=== PATIENT | female | born 1985 | race Native Hawaiian/Other Pacific Islander ===

== ENCOUNTER 2020-12-11 11:30 | Emergency (ER) | payer OTHER ==
[2020-12-11 12:37] LABS: BILIRUBIN,URINE NEGATIVE (NEGATIVE); GLUCOSE, URINE (UA) NEGATIVE (NEGATIVE); KETONES,URINE (UA) TRACE mg/dL (NEGATIVE); LEUKOCYTE ESTERASE, URINE NEGATIVE (NEGATIVE); NITRITE,URINE NEGATIVE (NEGATIVE); OCCULT BLOOD,URINE LARGE (NEGATIVE); PROTEIN,URINE 100 mg/dL (NEGATIVE); UROBILINOGEN,URINE 0.2 (NORMAL) E.U./dL (NORMAL)
[2020-12-11 12:39] LABS: BASOPHILS % (AUTO) 0.1 %; CLARITY,URINE BLOODY (CLEAR); HCT - HEMATOCRIT 43.7 % (37.0-47.0); HGB - HEMOGLOBIN 15.1 g/dL (12.0-16.0); LYMPHOCYTES % (AUTO) 4.2 %; MEAN CORPUSCULAR HEMOGLOBIN 30.6 pg (27.0-31.0); MEAN CORPUSCULAR HGB CONC 34.6 g/dL (32.0-36.0); MEAN CORPUSCULAR VOLUME 88.6 fL (81.0-99.0); MEAN PLATELET VOLUME 10.6 fL (7.9-10.8); MONOCYTES % (AUTO) 2.8 %; NEUTROPHILS % (AUTO) 92.4 %; PLT - PLATELET COUNT 277 10^3/uL (130-450); RED BLOOD COUNT 4.93 10^6/uL (4.20-5.40); RED CELL DISTRIBUTION WIDTH 12.6 % (12.0-15.0); WHITE BLOOD COUNT 22.3 x10^3/uL (4.8-10.8)
[2020-12-11 12:40] LABS: HCG UR QUAL NEGATIVE
[2020-12-11 12:45] LABS: ABNORMAL LYMPHS % (MANUAL) 0 %
[2020-12-11] MEDS ORDERED: ONDANSETRON 4 MG/2 ML VIAL IVP STA (12:48)
[2020-12-11] MEDS ORDERED: MORPHINE 2 MG/ML CARPUJECT IVP STA (12:48)
[2020-12-11] MEDS ORDERED: SODIUM CHLORIDE 0.9% 1,000 ML IV STA (12:48)
[2020-12-11 12:52] LABS: ALBUMIN 4.8 g/dL (3.2-5.5); ALBUMIN/GLOBULIN RATIO 1.5 (1.0-2.2); BILIRUBIN,TOTAL 0.9 mg/dL (0.2-1.0); CALCIUM 9.4 mg/dL (8.5-10.3); CREATININE 0.7 mg/dL (0.4-1.0); POTASSIUM 3.5 mmol/L (3.5-5.0); TOTAL PROTEIN 8.1 g/dL (6.7-8.2)
--- NOTE | 2020-12-11 12:52 | ED Physician Documentation ---
History of Present Illness - Stated complaint Stated Complaint: STOMACH/BACK PX VOMITING - Chief complaint Chief Complaint: Abd Pain - Additonal information Additional information: 35-year-old female presents emergency department for evaluation of acute right upper quadrant and epigastric abdominal pain that began yesterday evening after eating fast food. She says that she has had similar in the past but it generally self resolves. This is gone unabated with associated nausea and vomiting. No fevers. pain does radiate to the back. no flank or CVA tenderness She denies any diarrhea dysuria urgency or frequency. Reports currently being on her menstrual cycle. No pertinent past surgical or medical history with the exception of gestational diabetes and pregnacy related htn. However she is not currently medicated. Review of Systems Constitutional: denies: Fever, Chills, Myalgias Eyes: reports: Reviewed and negative Nose: reports: Reviewed and negative Throat: reports: Reviewed and negative Cardiac: reports: Reviewed and negative Respiratory: denies: Dyspnea, Cough GI: reports: Abdominal Pain, Nausea, Vomiting. denies: Constipation, Diarrhea : reports: Other (currently on menstrual cycle). denies: Dysuria, Frequency, Hesitancy Skin: reports: Reviewed and negative Musculoskeletal: reports: Back pain Neurologic: reports: Reviewed and negative PD PAST MEDICAL HISTORY - Present Medications Home Medications: Ambulatory Orders Medication Instructions Recorded Confirmed No Known Home Medications 12/11/20 12/11/20 - Allergies Allergies/Adverse Reactions: Allergies Allergy/AdvReac Type Severity Reaction Status Date / Time No Known Drug Allergies Allergy Verified 12/11/20 11:46 Results - Vitals Vitals: Vital Signs - 24 hr 12/11/20 12/11/20 12/11/20 11:41 13:46 15:00 Temperature 36.9 C 36.8 C 36.8 C Heart Rate 86 75 78 Respiratory 16 16 16 Rate Blood Pressure 144/94 H 137/81 H 136/80 H O2 Saturation 99 99 99 12/11/20 15:57 Temperature 36.7 C Heart Rate 88 Respiratory 16 Rate Blood Pressure 130/92 H O2 Saturation 100 Oxygen O2 Source Room air - Labs Labs: Laboratory Tests 12/11/20 12/11/20 12/11/20 12:09 12:09 12:09 WBC 22.3 H RBC 4.93 Hgb 15.1 Hct 43.7 MCV 88.6 MCH 30.6 MCHC 34.6 RDW 12.6 Plt Count 277 MPV 10.6 Neut # (Auto) Not Reportable Lymph # (Auto) Not Reportable Coffee # (Auto) Not Reportable Eos # (Auto) Not Reportable Baso # (Auto) Not Reportable Absolute Nucleated RBC Not Reportable Total Counted 100 Band Neuts % (Manual) 9 Abnorm Lymph % (Manual) 0 Nucleated RBC % Not Reportable Neutrophils # (Manual) 20.3 H Lymphocytes # (Manual) 1.3 L Monocytes # (Manual) 0.7 Eosinophils # (Manual) 0.0 Basophils # (Manual) 0.0 Differential Comment MANUAL DIFFERENTIAL WBC Morphology 1+ REACTIVE LYMPHS Sodium 139 Potassium 3.5 Chloride 104 Carbon Dioxide 23 Anion Gap 12.0 BUN 12 Creatinine 0.7 Estimated GFR (MDRD) 95 Glucose 118 H Calcium 9.4 Total Bilirubin 0.9 AST 20 ALT 20 Alkaline Phosphatase 73 Total Protein 8.1 Albumin 4.8 Globulin 3.3 Albumin/Globulin Ratio 1.5 Lipase 31 Urine Color RED/BLOODY Urine Clarity BLOODY Urine pH 7.0 Ur Specific [place] 1.025 Urine Protein 100 H Urine Glucose (UA) NEGATIVE Urine Ketones TRACE Urine Occult Blood LARGE H Urine Nitrite NEGATIVE Urine Bilirubin NEGATIVE Urine Urobilinogen 0.2 (NORMAL) Ur Leukocyte Esterase NEGATIVE Urine RBC TNTC H Urine WBC 0-3 Ur Squamous Epith Cells MANY Squamous H Urine Bacteria Many H Urine Mucus Marked Strands Ur Microscopic Review INDICATED Urine Culture Comments NOT INDICATED Urine HCG, Qual NEGATIVE - Rads (name of study) CT abd Radiology: Final report received, Other (Asymmetrically enlarged suspected thrombosed right ovarian gonadal vein. Left ovarian cyst. Appendix unremarkable.) Abd US Radiology: Final report received (Cholelithiasis without evidence of acute cholecystitis.) pelvic US Radiology: Final report received (No good notable veinous thrombus bilaterally. Normal arterial flow. No findings of torsion.) PD MEDICAL DECISION MAKING - ED course Complexity details: reviewed results, re-evaluated patient, d/w patient ED course: 35 year old female presents for acute upper abdominal pain and n/v that began last night - Abd US showed Cholelithiasis, but no secondary findings of acute emily. CT abd without secondary finding of acute emily - WBC 22K. No fevers. Likely reactive. Pain improved with morphine. Discussed case with Dr. Oglesby; he agrees that no emergent surgical need present, will f/u in clinic. - Concern for cholelithiasis and wbc discussed extensively with pt. she is on a 'short leash" for return - Incidental finding of right gonadal vein thrombus on CT scan. pelvic US did not show vein thrombus or arterial flow concerns. No torsion. Case discussed with Dr. Long fund controller for OB. he would like to see her in office. - Return precautions were discussed for pain Departure - Departure Clinical Impression: RUQ abdominal pain Cholelithiasis Qualifiers: Cholelithiasis location: gallbladder Cholecystitis presence: without cholecystitis Biliary obstruction: without biliary obstruction Qualified Code(s): K80.20 - Calculus of gallbladder without cholecystitis without obstruction Leukocytosis Qualifiers: Leukocytosis type: unspecified Qualified Code(s): D72.829 - Elevated white blood cell count, unspecified Condition: Stable Record reviewed to determine appropriate education?: Yes Instructions: Gallstones Follow-Up: Marcin Long MD [Provider Admit Priv/Credential] - Nicholas Oglesby MD [Provider Admit Priv/Credential] - Comments: Marisa you were seen in the emergency department today for right upper quadrant abdominal pain and vomiting. You do have gallstones. Your gallbladder will most likely need to be removed in the future. Please discuss with [facility] and your primary provider about referral to Dr. Konstantin Oglesby a local surgeon. You did have a fairly elevated white blood cell count today. This may be due to the gallstones so if at any point you feel your symptoms are worsening, You have a return of the pain, uncontrolled vomiting or fevers please return immediately. The CT scan did show concern that the ovarian vein on the right was thrombosed. However a pelvic ultrasound did not show that concern. [place] However if you would like to follow-up with our OB Dr. Long you are more than welcome to do so.
[2020-12-11 12:54] LABS: BACTERIA,URINE Many /HPF (None Seen); MUCUS,URINE Marked Strands; RBC,URINE TNTC /HPF (0-5); SQUAMOUS EPITHELIAL CELL,UR MANY Squamous (<= Few); WBC,URINE 0-3 /HPF (0-5)
[2020-12-11 12:59] LABS: BAND NEUTROPHILS % (MANUAL) 9 %; LYMPHOCYTES # (MANUAL) 1.3 10^3/uL (1.5-3.5); LYMPHOCYTES % (MANUAL) 6 %; MONOCYTES # (MANUAL) 0.7 10^3/uL (0.0-1.0); NEUTROPHILS # (MANUAL) 20.3 10^3/uL (1.5-6.6)
[2020-12-11 13:00] LABS: DIFFERENTIAL COMMENT MANUAL DIFFERENTIAL; WBC MORPHOLOGY (MULTIPLE) 1+ REACTIVE LYMPHS (NORMAL)
[2020-12-11] MEDS ORDERED: IOVERSOL 320 100 ML VIAL IVP ONE ×2 (13:03→14:13)
--- NOTE | 2020-12-11 14:30 | Ultrasound Report ---
PROCEDURE: Abdomen Limited INDICATIONS: RUQ abd pain; ? emily TECHNIQUE: Real-time focused scanning was performed of the abdomen, with image documentation. COMPARISON: None FINDINGS: Liver: Mild fatty infiltration noted without focal mass lesion. No intrahepatic biliary ductal dilata tion. Gallbladder: Gallbladder is distended. Multiple shadowing calculi present. No gallbladder wall thicke stacey or pericholecystic fluid. CBD: 4 mm Visualized pancreas unremarkable. Right kidney unremarkable without hydronephrosis. IMPRESSION: 1. Cholelithiasis without ultrasound evidence of acute cholecystitis. Reviewed by: Didier Ren MD on 12/11/2020 1:29 PM TYE Approved by: Didier Ren MD on 12/11/2020 1:29 PM AKMARTIN Station ID: [id number]
--- NOTE | 2020-12-11 14:33 | CT Report ---
PROCEDURE: Abdomen/Pelvis W INDICATIONS: RUQ abd pain CONTRAST: IV CONTRAST: Optiray 320 ml: 100 PO CONTRAST: *NO PO CONTRAST TECHNIQUE: After the administration of IV contrast, 5 mm thick sections acquired from the diaphragms to the symp hysis. 5 mm thick coronal and sagittal reformats were acquired. For radiation dose reduction, the f ollowing was used: automated exposure control, adjustment of mA and/or kV according to patient size. COMPARISON: None. FINDINGS: Image quality: Excellent. ABDOMEN: Lung bases: Lung bases are clear. Heart size is normal. Solid organs: Liver is minimally enlarged with steatosis. Spleen is normal in size and enhancement. Gallbladder is unremarkable Biliary system is non dilated. Pancreas enhances normally. No adrenal nodules. Kidneys demonstrate normal size and enhancement, without hydronephrosis. Simple left abel l cyst is present measuring 4.6 cm. Peritoneum and bowel: Bowel loops demonstrate normal wall thickness and caliber. No free fluid or a ir. Appendix is normal. Nodes and vessels: No retroperitoneal or mesenteric adenopathy by size criteria. Aorta and inferior vena cava are normal in size. The right ovarian/gonadal vein is asymmetrically dilated measuring 1. 4 cm. There is lack of contrast opacification within the lumen. Right ovary appears grossly of normal . There is no associated inflammatory change. Miscellaneous: No ventral hernias. PELVIS: Genitourinary: Bladder wall thickness is normal. 3.0 cm left adnexal cyst. IUD is noted. Miscellaneous: No inguinal hernias or adenopathy. Bones: No suspicious bony lesions. No vertebral body compression fractures. IMPRESSION: 1. Asymmetrically enlarged and suspected thrombosed right ovarian/gonadal vein as above. The right ov [place] appears unremarkable. However, recommend pelvic ultrasound for further evaluation. 2. Left ovarian cyst. 3. Appendix is unremarkable. Reviewed by: Iris Alex MD on 12/11/2020 2:32 PM PDT Approved by: Iris Alex MD on 12/11/2020 2:32 PM PDT Station ID: [id number]
[2020-12-11 16:00] VITALS: BP 130/92
--- NOTE | 2020-12-11 16:25 | Ultrasound Report ---
PROCEDURE: Pelvic w/Transvag+Doppler Comp INDICATIONS: ? thrombosed right ovarian gonadal vein TECHNIQUE: Real-time scanning was performed of the pelvic organs, with image documentation. Additional endovagi nal scanning was necessary due to incomplete visualization of the adnexal and endometrial structures by transabdominal scanning. COMPARISON: CT abdomen and pelvis 12/11/2020 FINDINGS: No pathologic free abdominal or pelvic fluid. Uterus: Uterus is normal in size at 8.8 x 5.0 x 6.1 cm. The endometrium measures 8 mm in combined t hickness. Intrauterine device in place. Ovaries: Right and left ovaries measure 2.8 x 2.1 x 1.7 cm and 3.7 x 2.7 x 4.0 cm respectively. Both ovaries have appropriate echotexture and vascularity. No free fluid or adnexal mass. With sprain cys t measures 3.0 x 2.3 cm IMPRESSION: Left ovarian cyst Thrombosed ovarian vein is not visualized on the current study Reviewed by: Didier Ren MD on 12/11/2020 3:24 PM TYE Approved by: Didier Ren MD on 12/11/2020 3:24 PM TYE Station ID: [id number]
== END 2020-12-11 16:32 | disposition home or self-care (01) ==
LOC: EDBD → ED 11:30
DX: K80.20 Calculus of gallbladder without cholecystitis without obstruction (principal); D72.829 Elevated white blood cell count, unspecified; N83.202 Unspecified ovarian cyst, left side; R93.89 Abnormal findings on diagnostic imaging of other specified body structures
CPT/HCPCS: 36415; 74177; 76705; 76830; 76856; 80053; 81001; 81025; 83690; 85025; 93975; 96374; 96375; 99284; Q9967; 81003; 87086

== ENCOUNTER 2023-03-22 08:12 | Outpatient (CLI) | payer OTHER ==
[2023-03-22 08:53] LABS: BASOPHILS % (AUTO) 0.5 %; EOSINOPHILS % (AUTO) 0.5 %; HCT - HEMATOCRIT 41.9 % (37.0-47.0); LYMPHOCYTES # (AUTO) 1.4 10^3/uL (1.5-3.5); LYMPHOCYTES % (AUTO) 16.6 %; MEAN CORPUSCULAR HEMOGLOBIN 31.6 pg (27.0-31.0); MEAN CORPUSCULAR HGB CONC 35.8 g/dL (32.0-36.0); MEAN CORPUSCULAR VOLUME 88.2 fL (81.0-99.0); MEAN PLATELET VOLUME 10.4 fL (7.9-10.8); MONOCYTES % (AUTO) 12.4 %; NEUTROPHILS # (AUTO) 5.7 10^3/uL (1.5-6.6); NEUTROPHILS % (AUTO) 69.8 %; PLT - PLATELET COUNT 222 10^3/uL (130-450); RED BLOOD COUNT 4.75 10^6/uL (4.20-5.40); RED CELL DISTRIBUTION WIDTH 12.3 % (12.0-15.0); WHITE BLOOD COUNT 8.1 x10^3/uL (4.8-10.8)
[2023-03-22 09:23] LABS: ALBUMIN 4.4 g/dL (3.2-5.5); ALBUMIN/GLOBULIN RATIO 1.5 (1.0-2.2); ALKALINE PHOSPHATASE 63 IU/L (42-121); ALT ALANINE AMINOTRANSFERASE 20 IU/L (10-60); AST ASPARTATE AMINOTRANSFERASE 19 IU/L (10-42); BILIRUBIN,TOTAL 0.5 mg/dL (0.2-1.0); BUN - BLOOD UREA NITROGEN 7 mg/dL (6-20); CARBON DIOXIDE - CO2 24 mmol/L (21-32); CHLORIDE 104 mmol/L (101-111); CHOL/HDL RATIO 2.5 (<4.4); CHOLESTEROL 116 mg/dL; CREATININE 0.8 mg/dL (0.6-1.3); GFR - MDRD 80 (>89); GLUCOSE 86 mg/dL (74-104); HDL CHOLESTEROL 46 mg/dL; LDL CHOLESTEROL,CALCULATED 49 mg/dL; LDL/HDL RATIO 1.1 (<4.4); POTASSIUM 3.8 mmol/L (3.5-4.5); SODIUM 138 mmol/L (135-145); TOTAL PROTEIN 7.4 g/dL (6.4-8.9); TRIGLYCERIDES 104 mg/dL (48-352); VLDL CHOLESTEROL 21 mg/dL
[2023-03-22 09:32] LABS: THYROID STIMULATING HORMONE 0.86 uIU/mL (0.34-5.60)
--- NOTE | 2023-03-22 12:05 | XRAY Report ---
PROCEDURE: Ribs w/PA Chest 4+V BL INDICATIONS: LOWER RIB PAIN TECHNIQUE: 2 views of the ribs were acquired, along with a single view chest. COMPARISON: None. FINDINGS: Surgical changes and devices: None. Bones and chest wall: No fractures or dislocations. No suspicious bony lesions. Overlying soft tis sues appear unremarkable. Lungs and pleura: No pleural effusions or pneumothorax. Lungs appear clear. Mediastinum: Mediastinal contours appear normal. Heart size is normal. IMPRESSION: No displaced rib fracture or suspicious bone lesion. Reviewed by: Yovana Olguin MD on 03/22/2023 12:03 PM PST Approved by: Yovana Olguin MD on 03/22/2023 12:03 PM PST Station ID: [id number]
== END 2023-03-22 08:13 | disposition home or self-care (01) ==
LOC: LAB 08:12
PROVIDERS: ATTEND Physician Assistant
DX: E78.5 Hyperlipidemia, unspecified (principal); Z13.9 Encounter for screening, unspecified; R07.81 Pleurodynia
CPT/HCPCS: 36415; 80053; 80061; 83721; 84443; 85025